=== PATIENT | male | born 1935 | race Caucasian/White ===

== ENCOUNTER 2023-08-06 09:52 | Emergency (ER) | payer MEDICARE, OTHER, SELFPAY ==
[2023-08-06 10:11] VITALS: BP 158/97; PULSE 84; RESP 16; TEMP 37.1; O2SAT 98; BMI 23.7
--- NOTE | 2023-08-06 10:55 | XR_ITS ---
Patient: Zhanna CROFT Facility:?[facility] Patient ID:?[id number] Site Patient ID:?[id number]. Site :?[id number] Study:?XRay-Chest Portable one view-08/06/2023 11:50:16 AM Ordering Physician:?LUCERO Final Report: INDICATION: Syncope, history of prostate cancer TECHNIQUE: 1 view chest radiograph COMPARISON: None. FINDINGS: Devices: None. Lung volumes are good. No focal or diffuse opacities. No pleural effusion. No pneumothorax. Heart size is normal. Presumed gastric bubble under the left diaphragm. Correlate for any abdominal symptoms. IMPRESSION: 1. Lungs clear. 2. Lucency under the left diaphragm may be gas in the stomach. Correlate for abdominal symptoms. Dictated by Nazia Lemus MD @ 08/06/2023 11:56:42 AM Signed by:?Nazia Lemsu MD @08/06/2023 11:56:42 AM (Electronic Signature)
[2023-08-06 11:12] VITALS: BP 140/91; BP 169/116; BP 178/107; PULSE 81; PULSE 86; PULSE 93
[2023-08-06 11:24] LABS: Basophils Absolute Auto 0.02 K/uL (0.00-0.30); Basophils Percent Auto 0.2 % (0.0-3.0); Eosinophils Absolute Auto 0.13 K/uL (0.00-0.50); Eosinophils Percent Auto 1.5 % (0.0-7.0); Hematocrit 46.8 % (37.0-53.0); Hemoglobin* 14.9 gm/dL (13.5-17.5); Immature Granulocytes Abs Auto 0.02 K/uL (0.00-0.30); Immature Granulocytes Pct Auto 0.2 %; Lymphocytes Percent Auto 13.3 % (20-44); Mean Corpuscular HGB Conc 32 gm/dL (32-36); Mean Corpuscular Hemoglobin 30 pg (26-34); Mean Corpuscular Volume 93 fL (80-100); Monocytes Percent Auto 7.4 % (0.0-11.0); Neutrophils Percent Auto 77.4 % (42.0-72.0); Platelet Count* 223 K/uL (140-440); RDW Coefficient of Variation % 13.1 % (11.5-15.5); Red Blood Count 5.05 m/uL (4.30-5.90); White Blood Count* 8.63 K/uL (4.50-11.00)
[2023-08-06 11:25] LABS: Slide Review Reflex No
[2023-08-06 11:42] LABS: Albumin* 4.6 g/dL (3.3-5.0); Chloride* 105 mmol/L (96-114)
[2023-08-06 11:43] LABS: Sodium* 139 mmol/L (135-149)
[2023-08-06 11:45] LABS: Alkaline Phosphatase* 67 U/L (40-150); Anion Gap 5 mEq/L (7-15); Aspartate Amino Transferase* 26 U/L (12-35); Bilirubin Total* 0.8 mg/dL (0.1-1.5); Blood Urea Nitrogen* 17 mg/dL (7-30); Carbon Dioxide* 29 mmol/L (20-32); Creatinine* 0.9 mg/dL (0.5-1.5); Est. Creatinine Clearance* 53.74; Estimated Glomerular Filt Rate 83 ml/min; Total Protein* 8.2 g/dL (6.0-8.3)
[2023-08-06 11:46] LABS: Alanine Aminotransferase* 9 U/L (4-50); Calcium* 9.3 mg/dL (8.4-10.6); Glucose* 110 mg/dL (60-115)
[2023-08-06 11:55] LABS: D Dimer Quantitative* < 0.27 ug/ml (0.00-0.50)
[2023-08-06 11:59] LABS: Troponin I* < 0.01 ng/mL (0.01-0.04)
--- NOTE | 2023-08-06 12:38 | ED_ITS ---
HPI - General Adult General Chief complaint: Unspecified Complaint, Adult Stated complaint: Low BP, syncopal yesterday Time Seen by Provider: 08/06/23 10:36 History of Present Illness HPI narrative: Patient is a 88-year-old gentleman who has had some lightheadedness. He has a known history of Parkinson's and is on midodrine with increasing doses. He called his primary doc today to discuss lightheadedness and was told to go the ER. He has had no chest pain no shortness a breath orthopnea no PND no nausea no vomiting. He did have orthostatic blood pressures which did not demonstrate orthostasis here in the emergency room. His blood pressure is certainly fine at 178/107 and not low today. No other significant symptoms noted. Related Data Home Medications Medication Instructions Recorded Confirmed Coumadin 08/06/23 Sinemet 08/06/23 atorvastatin 40 mg tablet (Lipitor) 40 mg PO DAILY 08/06/23 08/06/23 midodrine 08/06/23 Allergies Allergy/AdvReac Type Severity Reaction Status Date / Time No Known Drug Allergies Allergy Verified 08/06/23 10:17 Review of Systems Status of ROS: Reports: 10 or more systems reviewed and unremarkable except as noted in History and below Exam Narrative: Exam Narrative: EXAM GENERAL: Patient appears comfortable and well. EYES: No scleral icterus. LYMPH: No supraclavicular or cervical lymphadenopathy. SKIN: Visible skin seen during exam normal or with benign process only. EXT: No dependent lower extremity pedal edema. HEART: Regular rate and rhythm with no murmurs, rubs, or gallops. LUNGS: Clear to auscultation bilaterally with no crackles or wheezes. ABD: Soft, non tender, non distended. PSYCH: Good eye contact, speech is not pressured. Const: Vital Signs, click to edit/add: Vital Signs - 24 hr 08/06/23 10:11 08/06/23 11:12 Temperature 98.7 F Pulse Rate [Pulse Oximeter] 84 Pulse Rate [orthos tatic lying Right Pulse Oximeter] 81 Pulse Rate [orthos tatic sitting Righ t Pulse Oximeter] 93 Pulse Rate [orthos tatic standing Rig ht Pulse Oximeter] 86 Respiratory Rate 16 Blood Pressure [Ri ght Upper Arm] 158/97 H Blood Pressure [or thostatic lying Ri ght Arm] 169/116 H Blood Pressure [or thostatic sitting Right Arm] 178/107 H Blood Pressure [or thostatic standing Right Arm] 140/91 H Pulse Oximetry 98 Oxygen Delivery Me thod Room Air Course Course ED Course: Patient seen and examined. Vital Signs Vital signs: Initial Vital Signs Temperature 98.7 F 08/06/23 10:11 Temperature Source Temporal Artery Scan 08/06/23 10:11 Pulse Rate 84 08/06/23 10:11 Respiratory Rate 16 08/06/23 10:11 Blood Pressure 158/97 H 08/06/23 10:11 Blood Pressure Mean 117 H 08/06/23 10:11 Blood Pressure Position Supine 08/06/23 10:11 Pulse Oximetry 98 08/06/23 10:11 Oxygen Delivery Method Room Air 08/06/23 10:11 Vital Signs Temperature 98.7 F 08/06/23 10:11 Pulse Rate 84 08/06/23 10:11 Respiratory Rate 16 08/06/23 10:11 Blood Pressure 158/97 H 08/06/23 10:11 Pulse Oximetry 98 08/06/23 10:11 Oxygen Delivery Method Room Air 08/06/23 10:11 Temperature 98.7 F 08/06/23 10:11 Pulse Rate 93 08/06/23 11:12 Respiratory Rate 16 08/06/23 10:11 Blood Pressure 169/116 H 08/06/23 11:12 Pulse Oximetry 98 08/06/23 10:11 Oxygen Delivery Method Room Air 08/06/23 10:11 Medical Decision Making MDM Narrative Medical decision making narrative: Patient is a 8-year-old gentleman worked up today for hypotension. He is no longer hypotensive. His electrolytes blood count troponin D-dimer EKG chest x- ray are all unremarkable. This time I did offer reassurance and lasted continue his current management. Differential diagnosis includes but not limited to heart block cardiomyopathy acute myocardiaInfarction pulmonary embolism Lab Data Labs: Lab Results 08/06/23 Range/Units 11:18 WBC 8.63 (4.50-11.00) K/uL RBC 5.05 (4.30-5.90) m/uL Hgb 14.9 (13.5-17.5) gm/dL Hct 46.8 (37.0-53.0) % MCV 93 (80-100) fL MCH 30 (26-34) pg MCHC 32 (32-36) gm/dL RDW Coeff of [place] 13.1 (11.5-15.5) % Plt Count 223 (140-440) K/uL Neut % (Auto) 77.4 H (42.0-72.0) % Lymph % (Auto) 13.3 L (20-44) % [place] % (Auto) 7.4 (0.0-11.0) % Eos % (Auto) 1.5 (0.0-7.0) % Baso % (Auto) 0.2 (0.0-3.0) % Neut # (Auto) 6.70 (1.7-7.0) K/uL Lymph # (Auto) 1.10 (0.90-2.90) K/uL [place] # (Auto) 0.60 (0.00-0.90) K/UL Eos # (Auto) 0.13 (0.00-0.50) K/uL Baso # (Auto) 0.02 (0.00-0.30) K/uL Abs Immat Gran (auto) 0.02 (0.00-0.30) K/uL Imm/Tot Granulo (auto) 0.2 % D-Dimer Quant (PE/DVT) < 0.27 (0.00-0.50) ug/ml Sodium 139 (135-149) mmol/L Potassium 4.0 (3.6-5.1) mmol/L Chloride 105 (96-114) mmol/L Carbon Dioxide 29 (20-32) mmol/L Anion Gap 5 L (7-15) mEq/L BUN 17 (7-30) mg/dL Creatinine 0.9 (0.5-1.5) mg/dL Estimated Creat Clear 53.74 Estimated GFR 83 ml/min Glucose 110 (60-115) mg/dL Calcium 9.3 (8.4-10.6) mg/dL Total Bilirubin 0.8 (0.1-1.5) mg/dL AST 26 (12-35) U/L ALT 9 (4-50) U/L Alkaline Phosphatase 67 (40-150) U/L Troponin I < 0.01 L (0.01-0.04) ng/mL Total Protein 8.2 (6.0-8.3) g/dL Albumin 4.6 (3.3-5.0) g/dL Discharge Plan Discharge Clinical Impression: Hypotension Patient Disposition: Home, Self-Care Condition: Stable Instructions: Hypotension (ED) Additional Instructions: Continue current management with increased dosage of medication Follow-up with your doctor within the next week. Activity Level: No Restrictions Discharge Diet: Regular Prescriptions: No Action atorvastatin [Lipitor] 40 mg tablet 40 mg PO DAILY Sinemet midodrine Coumadin Follow Up/Referrals: Nando Ortiz MD [Primary Care Provider] - Stand Alone Forms: [facility] Info Instructions
== END 2023-08-06 12:52 | disposition home or self-care (01) ==
PROVIDERS: Emergency Provider Internal Medicine; PCP Family Medicine
DX: I95.9 Hypotension, unspecified (principal)
CPT/HCPCS: 36415; 71045; 80053; 84484; 85025; 85379; 99283

== ENCOUNTER 2024-02-18 18:27 | Outpatient (CLI) | payer MEDICARE, OTHER, SELFPAY | END 2024-02-18 18:28 | disposition home or self-care (01) | LOC: AMB 03-04 04:06 | PROVIDERS: PCP Family Medicine; Visit Provider Student in an Organized Health Care Education/Training Program | DX: R41.82 Altered mental status, unspecified (principal) | CPT/HCPCS: A0998 ==

== ENCOUNTER 2024-10-10 12:30 | Outpatient (RCR) | payer MEDICARE, OTHER, SELFPAY | END 2025-02-07 23:59 | disposition home or self-care (01) | PROVIDERS: PCP Family Medicine; Visit Provider Family Medicine | DX: G20.A1 Parkinson's disease without dyskinesia, without mention of fluctuations (principal); F02.80 Dementia in other diseases classified elsewhere, unspecified severity, without behavioral disturbance, psychotic disturbance, mood disturbance, and anxiety; R41.89 Other symptoms and signs involving cognitive functions and awareness; Z51.89 Encounter for other specified aftercare | CPT/HCPCS: 96125; 97129; 97130 ==